=== PATIENT | male | born 1935 | race Caucasian/White ===

== ENCOUNTER 2017-03-27 10:28 | Emergency (ER) | payer OTHER, BC ==
[~2017-03-27] VITALS: Ht 177.8 cm; Wt 77.5 kg
[~2017-03-27 10:28] MED LIST: ADVAIR 250/501 DISK IH; ALEVE220 MG PO; ALLOPURINOL300 MG PO; ASPIR-LOW81 MG PO; FISH OIL 1,0001 EAC7 PO; MAGNESIUM OXID500 MG PO; MONTELUKAST SOD10 MG PO; MUCINEX1200 MG PO; PRAVASTATIN SOD40 MG PO; PROTONIX40 MG PO; VITAMIN D1000 INTUN PO
[2017-03-27 11:27] LABS: ADD MIUA? YES; BILIRUBIN NEGATIVE; BLOOD NEGATIVE; COLOR YELLOW ((YELLOW)); GLUCOSE (STRIP) NEGATIVE; KETONES NEGATIVE; LEUKOCYTES NEGATIVE; NITRITE NEGATIVE; PROTEIN (STRIP) 30; SPECIFIC GRAVITY 1.025 (1.000-1.030)
[2017-03-27 11:30] LABS: BACTERIA RARE /HPF; EPITHELIAL CELLS RARE /HPF; MUCUS 1+ /LPF; RED BLOOD CELLS 0-5 /HPF (0-5); WHITE BLOOD CELLS 0-5 /HPF (0-5)
[2017-03-27 11:37] LABS: AMPHETAMINE NEGATIVE (500 ng/mL); BARBITURATES NEGATIVE (200 ng/mL); BENZODIAZEPINES NEGATIVE (150 ng/mL); COCAINE NEGATIVE (150 ng/mL); INTERNAL CONTROLS VALID? YES; METHADONE NEGATIVE (200 ng/mL); METHAMPHETAMINE NEGATIVE (500 ng/mL); OPIATES (MORPHINE) NEGATIVE (100 ng/mL); OXYCODONE NEGATIVE (100 ng/mL); PHENCYCLIDINE NEGATIVE (25 ng/mL); PROPOXYPHENE NEGATIVE (300 ng/mL); THC CANNABINOIDS NEGATIVE (50 ng/mL); TRICYCLIC ANTIDEPRESSANTS NEGATIVE (300 ng/mL)
[2017-03-27 11:38] LABS: HEMATOCRIT 45.5 % (38.0-50.0); MCH 29.9 PG (29.0-34.0); MCHC 33.2 G/DL (30.0-36.0); MCV 90.1 FL (86-99); MEAN PLAT.VOLUME 12.1 uM^3 (9.0-12.4); PLATELET COUNT 165 K/uL (156-360); RBC DIS.WIDTH-CV 15.4 % (11.8-14.6); RED BLOOD COUNT 5.05 M/uL (4.00-5.50); WHITE BLOOD COUNT 8.1 K/uL (4.1-10.2)
[2017-03-27 11:49] LABS: CHLORIDE 105 mEq/L (99-109); POTASSIUM 4.6 mEq/L (3.7-5.4); SODIUM 140 mEq/L (136-147)
[2017-03-27 11:51] LABS: GLUCOSE 102 mg/dL (70-99)
[2017-03-27 11:53] LABS: ANION GAP 11 MEQ/L (2-14)
[2017-03-27 11:55] LABS: GFR ESTIMATE (CALCULATED) > 59 mL/min/
[2017-03-27 11:56] LABS: UREA NITROGEN (BUN) 20 mg/dL (9-23)
[2017-03-27 13:45] VITALS: BP 134/81
== END 2017-03-27 13:46 | disposition home or self-care (01) ==
LOC: EME 10:28
PROVIDERS: Nurse Practitioner Family
DX: N50.812 Left testicular pain (principal); F32.9 Major depressive disorder, single episode, unspecified; R10.32 Left lower quadrant pain; K59.00 Constipation, unspecified; I10 Essential (primary) hypertension; E78.5 Hyperlipidemia, unspecified
CPT/HCPCS: 76870; 80048; 81003; 85027; 90839; 99281; 99284

== ENCOUNTER 2017-05-03 10:25 | Inpatient (IN) | payer OTHER, BC ==
[~2017-05-03] VITALS: Ht 175.3 cm; Wt 71.2 kg
[~2017-05-03 10:25] MED LIST changes: +LIPITOR40 MG PO; -PRAVASTATIN SOD40 MG PO; -VITAMIN D1000 INTUN PO; +VITAMIN D32000 UNI1 PO
[2017-05-03 11:57] LABS: EOSINOPHIL COUNT 0.3 K/uL (0-0.3); HEMATOCRIT 44.6 % (38.0-50.0); IMMATURE GRANULOCYTE (%) 0.4 % (0.0-0.7); INSTRUMENT ABS NEUTROPHIL CT 4.6 K/uL; LYMPHOCYTE COUNT 1.2 K/uL (1.0-2.8); MCH 30.6 PG (29.0-34.0); MCHC 33.2 G/DL (30.0-36.0); MCV 92.3 FL (86-99); MEAN PLAT.VOLUME 11.2 uM^3 (9.0-12.4); MONOCYTE COUNT 0.8 K/uL (0-0.8); NEUTROPHIL COUNT 4.6 K/uL (1.8-6.4); PLATELET COUNT 189 K/uL (156-360); RBC DIS.WIDTH-CV 15.5 % (11.8-14.6); RBC DIS.WIDTH-SD 52.6 % (39-53); RED BLOOD COUNT 4.83 M/uL (4.00-5.50)
[2017-05-03 12:06] LABS: CHLORIDE 101 mEq/L (99-109); POTASSIUM 4.3 mEq/L (3.7-5.4); SODIUM 139 mEq/L (136-147)
[2017-05-03 12:09] LABS: GLUCOSE 102 mg/dL (70-99)
[2017-05-03 12:10] LABS: ANION GAP 12 MEQ/L (2-14)
[2017-05-03 12:11] LABS: TOTAL BILIRUBIN 0.8 mg/dL (0.0-1.0)
[2017-05-03 12:12] LABS: ALKALINE PHOSPHATASE 95 IU/L (3-129); SERUM ETHYL ALCOHOL < 10 mg/dL
[2017-05-03 12:13] LABS: GFR ESTIMATE (CALCULATED) 57 mL/min/
[2017-05-03 12:14] LABS: UREA NITROGEN (BUN) 18 mg/dL (9-23)
[2017-05-03 12:20] LABS: TROP-I INTERPRETATION NEGATIVE; TROPONIN-I 0.02 ng/mL (0.0-0.30)
[2017-05-03 13:21] LABS: ADD MEDTOX COMMENT Y; AMPHETAMINE NEGATIVE (500 ng/mL); BARBITURATES NEGATIVE (200 ng/mL); BENZODIAZEPINES PRESUMPTIVE POSITIVE (150 ng/mL); COCAINE NEGATIVE (150 ng/mL); INTERNAL CONTROLS VALID? YES; METHADONE NEGATIVE (200 ng/mL); METHAMPHETAMINE NEGATIVE (500 ng/mL); OPIATES (MORPHINE) NEGATIVE (100 ng/mL); OXYCODONE NEGATIVE (100 ng/mL); PHENCYCLIDINE NEGATIVE (25 ng/mL); PROPOXYPHENE NEGATIVE (300 ng/mL); THC CANNABINOIDS NEGATIVE (50 ng/mL); TRICYCLIC ANTIDEPRESSANTS NEGATIVE (300 ng/mL)
[2017-05-03 13:42] LABS: ADD MIUA? YES; BILIRUBIN NEGATIVE; BLOOD NEGATIVE; GLUCOSE (STRIP) NEGATIVE; KETONES 20; LEUKOCYTES NEGATIVE; NITRITE NEGATIVE; PROTEIN (STRIP) NEGATIVE; SPECIFIC GRAVITY 1.027 (1.000-1.030)
[2017-05-03 13:48] LABS: COLOR DK YELLOW ((YELLOW))
[2017-05-03 14:00] LABS: BACTERIA RARE /HPF; EPITHELIAL CELLS NONE SEEN /HPF; HYALINE CASTS 0-5 /LPF; MUCUS 4+ /LPF; RED BLOOD CELLS 0-5 /HPF (0-5); UCUL ADDED? NO; WHITE BLOOD CELLS 0-5 /HPF (0-5)
[2017-05-03 14:15] LABS: BENZODIAZEPINES, URINE SCREEN POSITIVE (200 ng/mL)
[2017-05-03] MEDS ORDERED: COLACE100 MG PO (15:39)
[2017-05-03] MEDS ORDERED: XANAX0.5 MG PO (15:42)
[2017-05-03] MEDS ORDERED: LEXAPRO10 MG PO (15:42)
[2017-05-03] MEDS ORDERED: OLANZAPINE7.5 MG PO (15:43)
[2017-05-03] MEDS ORDERED: XARELTO15 MG PO (15:44)
[2017-05-03] MEDS ORDERED: INDERAL10 MG PO (15:44)
[2017-05-03] MEDS ORDERED: LINZESS145 MCG PO (15:44)
[2017-05-03] MEDS ORDERED: MIRTAZAPINE15 MG PO (15:45)
[2017-05-03] MEDS ORDERED: ASPIR 8181 M1 PO (15:46)
[2017-05-03 20:00] VITALS: BP 137/87
[2017-05-04] VITALS: BP 122/70
[2017-05-04 04:00] VITALS: BP 111/74
[2017-05-04 09:00] VITALS: BP 123/84
[2017-05-04 12:04] VITALS: BP 117/67
[2017-05-04 16:35] LABS: METH RESISTANT S AUREUS PCR NEGATIVE (NEGATIVE)
[2017-05-04 16:48] LABS: PROBE CHECK PASS; SPECIMEN PROCESSING CONTROL PASS
[2017-05-04 18:21] VITALS: BP 125/72
[2017-05-04 20:40] VITALS: BP 133/78
[2017-05-05] VITALS: BP 145/78
[2017-05-05 05:48] LABS: MCH 31.4 PG (29.0-34.0); MCHC 33.7 G/DL (30.0-36.0); MCV 93.1 FL (86-99); MEAN PLAT.VOLUME 11.8 uM^3 (9.0-12.4); PLATELET COUNT 169 K/uL (156-360); RBC DIS.WIDTH-CV 15.9 % (11.8-14.6); RED BLOOD COUNT 4.62 M/uL (4.00-5.50)
[2017-05-05 06:08] LABS: ANION GAP 12 MEQ/L (2-14); CHLORIDE 104 MEQ/L (99-109); GFR ESTIMATE (CALCULATED) > 59 mL/min/; GLUCOSE 97 mg/dL (70-99); POTASSIUM 4.4 MEQ/L (3.7-5.4); SAMPLE HEMOLYSIS CHECK 0; SAMPLE ICTERIC CHECK 0; SAMPLE LIPEMIA CHECK 0; SODIUM 142 MEQ/L (136-147); UREA NITROGEN (BUN) 20 mg/dL (9-23)
[2017-05-05 08:34] LABS: TREPONEMA ANTIBODY NEGATIVE (NEGATIVE)
[2017-05-05 08:47] VITALS: BP 132/80
[2017-05-05 13:27] VITALS: BP 148/83
== END 2017-05-05 21:17 | DRG 641 ==
LOC: EME 10:25 → EDOF 14:52 → 5WEST 14:52 → ENRESERV 14:54 → 5WEST 17:15 → CANRESERV 05-05 10:25 → ENRESERV 05-05 10:25 → 5WEST 05-05 21:17
PROVIDERS: Emergency Medicine; Internal Medicine; Internal Medicine Gastroenterology; Psychiatry & Neurology Psychiatry
PROC: 0DB98ZX Excision of Duodenum, Via Natural or Artificial Opening Endoscopic, Diagnostic (ICD-10-PCS; principal; 2017-05-04)
DX: R62.7 Adult failure to thrive (principal); R63.0 Anorexia; F33.3 Major depressive disorder, recurrent, severe with psychotic symptoms; G30.9 Alzheimer's disease, unspecified; F02.80 Dementia in other diseases classified elsewhere, unspecified severity, without behavioral disturbance, psychotic disturbance, mood disturbance, and anxiety; K29.80 Duodenitis without bleeding; K26.9 Duodenal ulcer, unspecified as acute or chronic, without hemorrhage or perforation; F41.9 Anxiety disorder, unspecified; I10 Essential (primary) hypertension; M10.9 Gout, unspecified; K21.9 Gastro-esophageal reflux disease without esophagitis; E78.5 Hyperlipidemia, unspecified; J45.909 Unspecified asthma, uncomplicated; K44.9 Diaphragmatic hernia without obstruction or gangrene; I71.4 Abdominal aortic aneurysm, without rupture; Z86.711 Personal history of pulmonary embolism; Z79.82 Long term (current) use of aspirin; Z91.14 Patient's other noncompliance with medication regimen; Z79.01 Long term (current) use of anticoagulants; Z91.19 Patient's noncompliance with other medical treatment and regimen
CPT/HCPCS: 74022; 80053; 80069; 81003; 82607; 82746; 82948; 83605; 84439; 84443; 84484; 84999; 85025; 85027; 86780; 87641; 88305; 88342 TC; 93005; 99281; 99284; G0378; G0480; J1650

== ENCOUNTER 2017-05-05 18:59 | Inpatient (IN) | payer OTHER, BC ==
[~2017-05-05] VITALS: Ht 175.3 cm; Wt 66.5 kg
[~2017-05-05 18:59] MED LIST changes: +ASPIR 8181 M1 PO; +COLACE100 MG PO; +INDERAL10 MG PO; +LEXAPRO10 MG PO; +LINZESS145 MCG PO; +MIRTAZAPINE15 MG PO; +OLANZAPINE7.5 MG PO; +XANAX0.5 MG PO; +XARELTO15 MG PO
[2017-05-05 21:26] VITALS: BP 162/105
[2017-05-05 21:29] VITALS: BP 161/105
[2017-05-06 08:19] VITALS: BP 130/81
[2017-05-06 16:28] VITALS: BP 163/94
[2017-05-07 07:58] VITALS: BP 156/112
[2017-05-07 11:20] VITALS: BP 158/88
[2017-05-07 15:18] VITALS: BP 129/84
[2017-05-08 08:45] VITALS: BP 134/76
[2017-05-08 15:58] VITALS: BP 141/81
[2017-05-09 08:09] VITALS: BP 184/92
[2017-05-09 11:13] VITALS: BP 109/69
[2017-05-09 15:40] VITALS: BP 120/70
[2017-05-10 08:55] VITALS: BP 124/73
[2017-05-10 16:37] VITALS: BP 119/72
[2017-05-11 08:01] VITALS: BP 138/88
[2017-05-11 15:45] VITALS: BP 124/91
[2017-05-12 07:21] VITALS: BP 181/103
[2017-05-12 15:33] VITALS: BP 121/79
[2017-05-13 07:28] VITALS: BP 150/105
[2017-05-13 15:25] VITALS: BP 143/59
[2017-05-14 07:37] VITALS: BP 142/95
[2017-05-14 11:41] VITALS: BP 124/74
[2017-05-14 14:57] VITALS: BP 120/77
[2017-05-15 08:10] VITALS: BP 149/108
[2017-05-15 10:48] VITALS: BP 154/86
[2017-05-15 15:53] VITALS: BP 130/83
[2017-05-16 07:50] VITALS: BP 136/93
[2017-05-16 15:42] VITALS: BP 147/73
[2017-05-17 07:50] VITALS: BP 158/94
[2017-05-17 15:34] VITALS: BP 130/82
[2017-05-18 07:53] VITALS: BP 159/86
[2017-05-18 15:47] VITALS: BP 132/82
[2017-05-19 07:29] VITALS: BP 158/99
[2017-05-19 16:35] VITALS: BP 142/86
[2017-05-20 07:43] VITALS: BP 105/62
[2017-05-20 15:26] VITALS: BP 108/66
[2017-05-21 07:52] VITALS: BP 152/98
[2017-05-21 09:49] VITALS: BP 120/59
[2017-05-21 09:51] LABS: HEMATOCRIT 42.4 % (38.0-50.0); MCV 92.2 FL (86-99)
[2017-05-21 10:20] LABS: ALKALINE PHOSPHATASE 81 IU/L (3-129); ANION GAP 11 MEQ/L (2-14); CHLORIDE 95 MEQ/L (99-109); GFR ESTIMATE (CALCULATED) > 59 mL/min/; GLUCOSE 116 mg/dL (70-99); POTASSIUM 4.8 MEQ/L (3.7-5.4); SAMPLE HEMOLYSIS CHECK 0; SAMPLE ICTERIC CHECK 0; SAMPLE LIPEMIA CHECK 0; SODIUM 133 MEQ/L (136-147); TOTAL BILIRUBIN 0.8 MG/DL (0.0-1.0); UREA NITROGEN (BUN) 32 mg/dL (9-23)
[2017-05-21] MEDS ORDERED: DONEPEZIL HCL5 MG PO (10:36)
[2017-05-21] MEDS ORDERED: HYDROCHLOROTH12.5 M3 PO (10:36)
[2017-05-21] MEDS ORDERED: WELLBUTRIN100 MG PO (10:36)
[2017-05-21] MEDS ORDERED: CYTOMEL25 MCG PO (10:36)
[2017-05-21] MEDS ORDERED: RISPERIDONE0.5 MG PO (10:36)
== END 2017-05-21 11:13 | DRG 885 ==
LOC: ENRESERV 18:59 → 1WEST 18:59
PROVIDERS: Psychiatry & Neurology Psychiatry
DX: F33.3 Major depressive disorder, recurrent, severe with psychotic symptoms (principal); G30.9 Alzheimer's disease, unspecified; F02.80 Dementia in other diseases classified elsewhere, unspecified severity, without behavioral disturbance, psychotic disturbance, mood disturbance, and anxiety; R63.4 Abnormal weight loss; F41.9 Anxiety disorder, unspecified; I10 Essential (primary) hypertension; K62.5 Hemorrhage of anus and rectum; K29.80 Duodenitis without bleeding; K44.9 Diaphragmatic hernia without obstruction or gangrene; Z86.711 Personal history of pulmonary embolism
CPT/HCPCS: 80053; 84443; 85014; 85018; 85610; 85730; 86850; 86900; 86901; 93971; 97150 GO; 97166 GO; 97530 GO

== ENCOUNTER 2017-05-21 10:24 | Inpatient (IN) | payer OTHER, BC ==
[~2017-05-21] VITALS: Ht 175.3 cm; Wt 66.5 kg
[2017-05-21] MEDS ORDERED: DONEPEZIL HCL5 MG PO (10:36)
[2017-05-21] MEDS ORDERED: CYTOMEL25 MCG PO (10:36)
[2017-05-21] MEDS ORDERED: HYDROCHLOROTH12.5 M3 PO (10:36)
[2017-05-21] MEDS ORDERED: WELLBUTRIN100 MG PO (10:36)
[2017-05-21] MEDS ORDERED: RISPERIDONE0.5 MG PO (10:36)
[2017-05-21 13:06] VITALS: BP 117/78
[2017-05-21 13:33] LABS: INTER. NORMALIZED RATIO 1.3; PROTHROMBIN TIME 14.7 SEC (10.2-12.9)
[2017-05-21 13:36] LABS: PTT 30.4 SEC (25-37)
[2017-05-21 14:44] LABS: INTER. NORMALIZED RATIO 1.2; PROTHROMBIN TIME 13.4 SEC (10.2-12.9)
[2017-05-21 14:47] LABS: PTT 29.5 SEC (25-37)
[2017-05-21 18:06] VITALS: BP 112/73
[2017-05-21 18:26] VITALS: BP 160/96
[2017-05-21 18:56] LABS: HEMATOCRIT 39.5 % (38.0-50.0); MCHC 34.7 G/DL (30.0-36.0); MCV 92.3 FL (86-99); MEAN PLAT.VOLUME 11.9 uM^3 (9.0-12.4); PLAT.SUFFICIENCY ADEQUATE; PLATELET COUNT 191 K/uL (156-360); RBC DIS.WIDTH-CV 15.9 % (11.8-14.6); RBC DIS.WIDTH-SD 53.1 % (39-53); RED BLOOD COUNT 4.28 M/uL (4.00-5.50); WHITE BLOOD COUNT 13.4 K/uL (4.1-10.2)
[2017-05-21 19:28] VITALS: BP 127/100
[2017-05-21 19:29] VITALS: BP 127/100
[2017-05-21 23:30] VITALS: BP 110/68
[2017-05-22] VITALS (11 sets, daily range): BP systolic 109–157; BP diastolic 66–93
[2017-05-22 06:52] LABS: INTER. NORMALIZED RATIO 1.2; PROTHROMBIN TIME 13.2 SEC (10.2-12.9)
[2017-05-22 06:54] LABS: PTT 27.2 SEC (25-37)
[2017-05-22 07:07] LABS: HEMATOCRIT 32.2 % (38.0-50.0); MCH 30.4 PG (29.0-34.0); MCHC 32.9 G/DL (30.0-36.0); MCV 92.3 FL (86-99); MEAN PLAT.VOLUME 12.1 uM^3 (9.0-12.4); PLATELET COUNT 147 K/uL (156-360); RBC DIS.WIDTH-CV 16.1 % (11.8-14.6); RBC DIS.WIDTH-SD 53.3 % (39-53); RED BLOOD COUNT 3.49 M/uL (4.00-5.50); WHITE BLOOD COUNT 6.6 K/uL (4.1-10.2)
[2017-05-22 07:16] LABS: ANION GAP 8 MEQ/L (2-14); CHLORIDE 100 MEQ/L (99-109); GFR ESTIMATE (CALCULATED) > 59 mL/min/; GLUCOSE 92 mg/dL (70-99); POTASSIUM 3.9 MEQ/L (3.7-5.4); SAMPLE HEMOLYSIS CHECK 0; SAMPLE ICTERIC CHECK 0; SAMPLE LIPEMIA CHECK 0; SODIUM 138 MEQ/L (136-147); UREA NITROGEN (BUN) 19 mg/dL (9-23)
[2017-05-22 18:48] LABS: HEMATOCRIT 37.6 % (38.0-50.0); MCH 30.9 PG (29.0-34.0); MCHC 32.4 G/DL (30.0-36.0); MCV 95.2 FL (86-99); MEAN PLAT.VOLUME 11.8 uM^3 (9.0-12.4); PLATELET COUNT 150 K/uL (156-360); RBC DIS.WIDTH-CV 16.2 % (11.8-14.6); RBC DIS.WIDTH-SD 56.5 % (39-53); RED BLOOD COUNT 3.95 M/uL (4.00-5.50); WHITE BLOOD COUNT 6.4 K/uL (4.1-10.2)
[2017-05-23 03:27] VITALS: BP 156/88
[2017-05-23 07:04] VITALS: BP 158/88
[2017-05-23 08:34] LABS: HEMATOCRIT 33.6 % (38.0-50.0); MCV 93.9 FL (86-99)
[2017-05-23 11:02] VITALS: BP 154/74
[2017-05-23 15:01] VITALS: BP 133/68
[2017-05-23 19:37] VITALS: BP 162/88
[2017-05-23 20:04] LABS: HEMATOCRIT 34.7 % (38.0-50.0); MCV 93.5 FL (86-99)
[2017-05-24 00:48] VITALS: BP 137/84
[2017-05-24 04:26] VITALS: BP 147/89
[2017-05-24 06:37] LABS: HEMATOCRIT 35.6 % (38.0-50.0); MCV 94.2 FL (86-99); NRBC (%) 0.7 /100 WBC (0-0); PLATELET COUNT 163 K/uL (156-360); RBC DIS.WIDTH-CV 16.6 % (11.8-14.6); RED BLOOD COUNT 3.78 M/uL (4.00-5.50); WHITE BLOOD COUNT 5.5 K/uL (4.1-10.2)
[2017-05-24 08:00] VITALS: BP 187/101
[2017-05-24 08:36] LABS: C DIFF TOXIN NEGATIVE (NEGATIVE)
[2017-05-24 08:41] LABS: PROBE CHECK PASS; SPECIMEN PROCESSING CONTROL PASS
[2017-05-24 11:29] VITALS: BP 100/106
[2017-05-24 15:16] VITALS: BP 197/112
[2017-05-24 16:46] VITALS: BP 188/119
[2017-05-25 07:11] VITALS: BP 109/63
[2017-05-25 09:25] LABS: HEMATOCRIT 41.7 % (38.0-50.0); MCV 94.6 FL (86-99)
[2017-05-25 15:13] VITALS: BP 110/63
[2017-05-25] MEDS ORDERED: EFFEXOR50 MG PO (15:24)
[2017-05-25] MEDS ORDERED: METRONIDAZOLE500 MG PO (15:24)
[2017-05-25 19:58] LABS: HEMATOCRIT 37.2 % (38.0-50.0); MCV 93.7 FL (86-99)
[2017-05-25 20:46] VITALS: BP 191/96
[2017-05-25 23:28] VITALS: BP 127/76
[2017-05-26 06:41] LABS: MCH 31.5 PG (29.0-34.0); MCHC 33.9 G/DL (30.0-36.0); MEAN PLAT.VOLUME 11.2 uM^3 (9.0-12.4); PLATELET COUNT 159 K/uL (156-360); RBC DIS.WIDTH-CV 16.3 % (11.8-14.6); RBC DIS.WIDTH-SD 55.1 % (39-53); RED BLOOD COUNT 3.87 M/uL (4.00-5.50); WHITE BLOOD COUNT 5.8 K/uL (4.1-10.2)
[2017-05-26 07:06] VITALS: BP 121/78
[2017-05-26 15:05] VITALS: BP 124/66
[2017-05-26 18:07] LABS: HEMATOCRIT 35.2 % (38.0-50.0); MCV 94.1 FL (86-99); MEAN PLAT.VOLUME 11.5 uM^3 (9.0-12.4); PLATELET COUNT 159 K/uL (156-360); RBC DIS.WIDTH-CV 16.6 % (11.8-14.6); RBC DIS.WIDTH-SD 57.3 % (39-53); RED BLOOD COUNT 3.74 M/uL (4.00-5.50); WHITE BLOOD COUNT 6.1 K/uL (4.1-10.2)
[2017-05-26 19:45] VITALS: BP 152/69
[2017-05-27 00:08] VITALS: BP 153/87
[2017-05-27 00:42] LABS: ADD MIUA? YES; BILIRUBIN NEGATIVE; BLOOD NEGATIVE; COLOR YELLOW ((YELLOW)); GLUCOSE (STRIP) NEGATIVE; KETONES NEGATIVE; LEUKOCYTES TRACE; NITRITE NEGATIVE; PROTEIN (STRIP) NEGATIVE; SPECIFIC GRAVITY 1.011 (1.000-1.030); UROBILINOGEN 0.2 MG/DL (0.2-1.0)
[2017-05-27 00:54] LABS: BACTERIA RARE /HPF; EPITHELIAL CELLS NONE SEEN /HPF; MUCUS NONE SEEN /LPF; RED BLOOD CELLS 0-5 /HPF (0-5); UCUL ADDED? NO; WHITE BLOOD CELLS 0-5 /HPF (0-5)
[2017-05-27 06:12] LABS: HEMATOCRIT 34.7 % (38.0-50.0); MCH 30.8 PG (29.0-34.0); MCHC 32.3 G/DL (30.0-36.0); MCV 95.3 FL (86-99); MEAN PLAT.VOLUME 11.3 uM^3 (9.0-12.4); PLATELET COUNT 155 K/uL (156-360); RBC DIS.WIDTH-CV 16.5 % (11.8-14.6); RBC DIS.WIDTH-SD 57.6 % (39-53); RED BLOOD COUNT 3.64 M/uL (4.00-5.50); WHITE BLOOD COUNT 6.1 K/uL (4.1-10.2)
[2017-05-27 07:30] VITALS: BP 133/70
[2017-05-27 15:20] VITALS: BP 154/81
[2017-05-27 20:26] LABS: HEMATOCRIT 37.9 % (38.0-50.0); MCV 94.8 FL (86-99)
[2017-05-27 23:41] VITALS: BP 160/87
[2017-05-28 05:58] LABS: HEMATOCRIT 34.5 % (38.0-50.0); MCH 31.7 PG (29.0-34.0); MCHC 33.3 G/DL (30.0-36.0); MEAN PLAT.VOLUME 12.1 uM^3 (9.0-12.4); PLATELET COUNT 158 K/uL (156-360); RBC DIS.WIDTH-CV 16.7 % (11.8-14.6); RED BLOOD COUNT 3.63 M/uL (4.00-5.50)
[2017-05-28 15:58] VITALS: BP 150/79
[2017-05-28 20:35] LABS: HEMATOCRIT 38.6 % (38.0-50.0); MCV 94.4 FL (86-99)
[2017-05-29 00:18] VITALS: BP 91/50
[2017-05-29 06:21] LABS: HEMATOCRIT 36.2 % (38.0-50.0); MCH 30.6 PG (29.0-34.0); MCHC 32.6 G/DL (30.0-36.0); MCV 93.8 FL (86-99); MEAN PLAT.VOLUME 11.7 uM^3 (9.0-12.4); PLATELET COUNT 146 K/uL (156-360); RBC DIS.WIDTH-CV 16.5 % (11.8-14.6); RBC DIS.WIDTH-SD 57.1 % (39-53); RED BLOOD COUNT 3.86 M/uL (4.00-5.50); WHITE BLOOD COUNT 6.4 K/uL (4.1-10.2)
[2017-05-29 08:00] VITALS: BP 106/61
[2017-05-29 08:22] VITALS: BP 106/61
== END 2017-05-29 12:25 | DRG 377 ==
LOC: 5SOUTH 10:24 → ENRESERV 10:26 → 5SOUTH 11:21
PROVIDERS: Internal Medicine; Nurse Practitioner Adult Health; Specialist
PROC: 30233K1 Transfusion of Nonautologous Frozen Plasma into Peripheral Vein, Percutaneous Approach (ICD-10-PCS; principal; 2017-05-21)
DX: K92.2 Gastrointestinal hemorrhage, unspecified (principal); E87.1 Hypo-osmolality and hyponatremia; K92.1 Melena; I65.22 Occlusion and stenosis of left carotid artery; F33.2 Major depressive disorder, recurrent severe without psychotic features; F01.50 Vascular dementia, unspecified severity, without behavioral disturbance, psychotic disturbance, mood disturbance, and anxiety; F02.80 Dementia in other diseases classified elsewhere, unspecified severity, without behavioral disturbance, psychotic disturbance, mood disturbance, and anxiety; G30.9 Alzheimer's disease, unspecified; I26.99 Other pulmonary embolism without acute cor pulmonale; R79.1 Abnormal coagulation profile; I10 Essential (primary) hypertension; E78.5 Hyperlipidemia, unspecified; M10.9 Gout, unspecified; I71.4 Abdominal aortic aneurysm, without rupture; K59.00 Constipation, unspecified; N40.1 Benign prostatic hyperplasia with lower urinary tract symptoms; K44.9 Diaphragmatic hernia without obstruction or gangrene; J45.909 Unspecified asthma, uncomplicated; Z79.01 Long term (current) use of anticoagulants; T45.515A Adverse effect of anticoagulants, initial encounter; Z86.711 Personal history of pulmonary embolism; Z98.52 Vasectomy status
CPT/HCPCS: 70450; 74177; 80048; 81003; 85014; 85018; 85027; 85610; 85730; 86850; 86900; 86901; 86920; 87177; 87493; 87506; 97530 GO; J0360; J2060; J2405; J7030; P9017; Q0167